=== PATIENT | female | born 1930 | race Caucasian/White ===

== ENCOUNTER 2019-04-03 12:10 | Emergency (ER) | payer MEDICAID, MEDICARE ==
[2019-04-03] MEDS ORDERED: traMADol HCl 50 MG TAB ONE (12:54)
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
--- NOTE | 2019-04-03 14:24 | RAD ---
SINGLE VIEW OF THE CHEST: Comparison: 11-27-18 History: Chest pain FINDINGS: Single view of the chest shows a normal sized cardiomediastinal silhouette. There is no evidence of c onsolidation, mass, or pleural effusion. The bones are unremarkable. IMPRESSION: No evidence of acute cardiopulmonary disease. POS: TPC
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
== END 2019-04-03 14:55 | disposition home or self-care (01) ==
LOC: ERS 12:10
DX: S16.1XXA Strain of muscle, fascia and tendon at neck level, initial encounter (principal); M25.561 Pain in right knee; I25.10 Atherosclerotic heart disease of native coronary artery without angina pectoris; I11.0 Hypertensive heart disease with heart failure; I50.9 Heart failure, unspecified; E03.9 Hypothyroidism, unspecified; K21.9 Gastro-esophageal reflux disease without esophagitis; E78.5 Hyperlipidemia, unspecified; F41.9 Anxiety disorder, unspecified; F32.9 Major depressive disorder, single episode, unspecified; Z87.891 Personal history of nicotine dependence; Z79.899 Other long term (current) drug therapy; Z79.01 Long term (current) use of anticoagulants; V49.59XA Passenger injured in collision with other motor vehicles in traffic accident, initial encounter
CPT/HCPCS: 70450; 71045; 72125

== ENCOUNTER 2020-05-11 08:24 | Observation (INO) | payer MEDICARE, MEDICAID, OTHER ==
--- NOTE | 2020-05-11 08:58 | RAD ---
PORTABLE CHEST: Date: 05/11/2020 HISTORY: Chest pain. COMPARISON: 05/06/2020. FINDINGS: The lungs are clear of infiltrate. Heart and mediastinum appear normal. Vasculature normal. IMPRESSION: No acute process. POS: AGW
[2020-05-11 09:17] LABS: Hemoglobin 10.7 g/dL (12.0-16.0); Mean Corpuscular HGB CONC 31.4 g/dL (32.0-36.0); Mean Corpuscular Hemoglobin 29.5 pg (27.0-31.0); Mean Corpuscular Volume 93.8 fL (78.0-98.0); Mean Platelet Volume 7.2 fL (7.4-10.4); Platelet Count 276 thou/uL (130-400); RBC Distribution Width 13.9 % (11.5-14.5); Red Blood Cell (RBC) Count 3.64 mill/uL (4.20-5.40)
[2020-05-11] MEDS ORDERED: Aspirin Chewable 81 MG TAB ONE (09:20)
[2020-05-11 09:44] LABS: Eosinophils 2 % (0-10); Hypochromia SLIGHT = 6-15 cells (100X) (0-5/hpf); Lymphocytes 12 % (21-51); MDiff Complete? YES; Monocytes 5 % (0-10); Neutrophil 81 % (42-75); Platelet Morphology Comment Appears Adequate; Polychromasia SLIGHT = 2-3 cells (100X) (0-2/hpf)
[2020-05-11 09:45] LABS: ALT (SGPT) Less than 7 U/L (8-55); AST (SGOT) 18 U/L (5-34); Albumin 3.4 g/dL (3.4-4.8); Alkaline Phosphatase 132 U/L (40-110); Anion Gap 13 mmol/L (10-20); BUN (Urea Nitrogen) 7 mg/dL (9.8-20.1); Bilirubin, Total 0.6 mg/dL (0.2-1.2); Calc. Creatinine Clearance 0 mL/min (70-130); Calcium 8.8 mg/dL (7.8-10.44); Carbon Dioxide 22 mmol/L (23-31); Chloride 100 mmol/L (98-107); Estimated GFR-MDRD 62; Globulin 2.9 g/dL (2.4-3.5); Glucose 106 mg/dL (83-110); Lipase 15 U/L (8-78); Potassium 4.7 mmol/L (3.5-5.1); Protein, Total 6.3 g/dL (6.0-8.3); Sodium 130 mmol/L (136-145)
[2020-05-11 10:32] LABS: Bilirubin Negative (Negative); Blood, Urine Negative (Negative); Clarity Clear (Clear); Glucose, Urine (Dipstick) Normal (Negative); Ketone, Urine Negative (Negative); Leukocyte Negative Leu/uL (Negative); Nitrite Negative (Negative); Protein, Urine (Dipstick) Negative (Neg-Trace); Specific Gravity, Urine 1.008 (1.002-1.036); Urobilinogen Normal mg/dL (Less than 2)
[2020-05-11 12:36] LABS: Troponin I 0.019 ng/mL (< 0.028)
[2020-05-11 13:15] LABS: SARS-CoV-2 NAA Rapid Test Not Detected (NotDetected)
--- NOTE | 2020-05-11 14:34 | CT ---
CTA Angio Chest W WO Con 05/11/2020 2:00 PM Indication: Chest pain and; lethargy and bilateral lower extremity swelling Technique: Multiple CTA images were obtained of the thorax with IV contrast. 3-D rendering: MIP mirza nstructed images were created and reviewed. Comparison: No relevant prior studies available. Findings: Pulmonary arteries: No central or segmental pulmonary embolus is evident. Heart and Aorta: There are vascular calcifications involving the thoracic aorta and origins of the g reat vessels of the neck. Mediastinum:There are calcified lymph nodes seen within the mediastinum and right hilar region. Lungs:There are areas of subsegmental volume loss involving both lower lobes. There is some mild isela pheral bronchiectasis seen within the posterior aspects of both lower lobes. There are small bilateral pleural effusions, right greater than left. Pleural space: Small bilateral pleural effusions, right greater than left Upper Abdomen: No acute abnormality Osseous Structures: There are minimally displaced anterolateral right sixth through eighth rib fract ures. There is scattered degenerative and osteoarthritic change present. Soft tissues:No abnormality. Other findings:None. Impression: 1. No central or segmental pulmonary embolus. 2. Small bilateral pleural effusions with suspected bibasilar subsegmental volume loss. There is some areas of mild bronchiectasis seen within both lower lobes. The airspace disease with bronchiectasis and small pleural effusions can be seen with recurrent aspiration . Recommend correlat ion patient's clinical history and consideration for speech therapy consultation. 3. Minimally displaced anterolateral right sixth through eighth rib fractures.
[2020-05-11 15:35] LABS: Troponin I 0.023 ng/mL (< 0.028)
[2020-05-11] MEDS ORDERED: Ondansetron PF 4 MG/2 ML Vial IVP PRN ×2 (15:38→16:37)
[2020-05-11] MEDS ORDERED: Bisacodyl 5 MG TAB PO PRN ×2 (15:38→16:37)
[2020-05-11] MEDS ORDERED: Acetaminophen 325 MG TAB PO PRN ×2 (15:38→16:37)
[2020-05-11] MEDS ORDERED: traMADol HCl 50 MG TAB PO PRN ×2 (15:41→16:37)
[2020-05-11] MEDS ORDERED: Lidocaine 5% Patch TD SCH ×2 (15:45→17:00)
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
[2020-05-11] MEDS ORDERED: Iopamidol 370 76% 100 ML VIAL ONE (16:15)
[2020-05-11 18:26] VITALS: BMI 27.6
[2020-05-12] MEDS ORDERED: Lidocaine Patch Removal 1 EACH TOP SCH (05:00)
[2020-05-12 08:23] LABS: #Eosinphils 0.1 thou/uL (0.0-0.7); #Lymphocytes 1.9 thou/uL (1.20-3.40); #Monocytes 0.8 thou/uL (0.11-0.59); %Basophils 0.5 % (0.0-1.0); %Eosinophils 0.7 % (0.0-10.0); %Lymphocytes 21.3 % (21.0-51.0); %Monocytes 8.6 % (0.0-10.0); %Neutrophils 68.9 % (42.0-75.0); Hemoglobin 10.9 g/dL (12.0-16.0); Mean Corpuscular Hemoglobin 28.3 pg (27.0-31.0); Mean Corpuscular Volume 91.4 fL (78.0-98.0); Mean Platelet Volume 6.9 fL (7.4-10.4); Platelet Count 253 thou/uL (130-400); RBC Distribution Width 14.1 % (11.5-14.5); Red Blood Cell (RBC) Count 3.86 mill/uL (4.20-5.40); White Blood Cell (WBC) Count 8.7 thou/uL (4.8-10.8)
[2020-05-12 08:36] LABS: ALT (SGPT) Less than 7 U/L (8-55); AST (SGOT) 15 U/L (5-34); Albumin 3.4 g/dL (3.4-4.8); Alkaline Phosphatase 128 U/L (40-110); Anion Gap 12 mmol/L (10-20); BUN (Urea Nitrogen) 7 mg/dL (9.8-20.1); Bilirubin, Total 0.8 mg/dL (0.2-1.2); Calc. Creatinine Clearance 54 mL/min (70-130); Calcium 8.8 mg/dL (7.8-10.44); Carbon Dioxide 25 mmol/L (23-31); Chloride 101 mmol/L (98-107); Estimated GFR-MDRD 64; Globulin 2.8 g/dL (2.4-3.5); Glucose 99 mg/dL (83-110); Potassium 4.8 mmol/L (3.5-5.1); Protein, Total 6.2 g/dL (6.0-8.3); Sodium 133 mmol/L (136-145)
[2020-05-12] MEDS ORDERED: Enoxaparin Sodium 40 MG/0.4 ML SYRINGE SC SCH ×2 (09:00)
[2020-05-12 11:47] VITALS: BP 159/67; TEMP 97.1
--- NOTE | 2020-05-13 02:47 | DIS ---
DATE OF ADMISSION: 05/11/2020 DATE OF DISCHARGE: 05/12/2020 PRIMARY CARE PROVIDER: Lam Diaz DO DISCHARGE DIAGNOSES: 1. Chest pain. 2. Chest pain secondary to right-sided rib fractures. 3. Hyponatremia. CONDITION OF PATIENT ON THE DAY OF DISCHARGE: Stable. I assessed Ms. Naylor on the day of discharge. She denies any chest pain. Vital signs are stable. S1 and S2 are heard, regular. Lungs are clear to auscultation bilaterally. HOSPITAL COURSE: Ms. Naylor is a pleasant 89-year-old lady, who was admitted to [facility] on May 11, 2020 for right-sided chest pain secondary to minimally displaced fractures of the right 6th to [address] ribs[address] scan of the chest done at the time of admission did not show any evidence of pulmonary embolism. She had small bilateral pleural effusions with suspected bibasilar subsegmental volume loss and some areas of mild bronchiectasis within both lower lobes. The airspace disease with bronchiectasis and small pleural effusions can be seen with recurrent aspiration, according to radiologist. She is advised to have Speech Therapy evaluation as outpatient. DISCHARGE MEDICATIONS: She has been started on 5% Lidoderm patch. Otherwise, no change was made to her pre-admission home medications. ACTIVITY: No restrictions. DIET: Heart healthy. On the day of discharge, she has sodium 133, potassium 4.8, creatinine 0.84. White count 8700, hemoglobin 10.9, and platelet count 253,000. Job ID: [id number]
--- NOTE | 2020-05-14 12:54 | EKG ---
Test Reason : Blood Pressure : / mmHG Vent. Rate : 074 BPM Atrial Rate : 074 BPM P-R Int : 132 ms QRS Dur : 074 ms QT Int : 364 ms P-R-T Axes : 076 000 071 degrees QTc Int : 404 ms Sinus rhythm with Premature atrial complexes Cannot rule out Inferior infarct , age undetermined Cannot rule out Anterior infarct , age undetermined Abnormal ECG Confirmed by VARGAS SOW ([id number]), editor at large AMBER COON ([id number] on 05/14/2020 12:53:59 PM Referred By: Confirmed By:VARGAS Teague
== END 2020-05-12 13:35 | disposition home or self-care (01) ==
LOC: ERS 08:24 → 2NO 11:27 → ERS 16:03 → INTOOBSV 16:37 → UNDOADMOB 16:37 → 2NO 16:37 → UNDODISOB 05-12 13:35
PROVIDERS: ADMIT Internal Medicine; ATTEND Internal Medicine
DX: R07.9 Chest pain, unspecified (principal); S22.41XA Multiple fractures of ribs, right side, initial encounter for closed fracture; E87.1 Hypo-osmolality and hyponatremia; J90 Pleural effusion, not elsewhere classified; J47.9 Bronchiectasis, uncomplicated; I25.10 Atherosclerotic heart disease of native coronary artery without angina pectoris; I11.0 Hypertensive heart disease with heart failure; I50.9 Heart failure, unspecified; E03.9 Hypothyroidism, unspecified; K21.9 Gastro-esophageal reflux disease without esophagitis; E78.5 Hyperlipidemia, unspecified; F03.90 Unspecified dementia, unspecified severity, without behavioral disturbance, psychotic disturbance, mood disturbance, and anxiety; Z20.828 Contact with and (suspected) exposure to other viral communicable diseases; Z79.02 Long term (current) use of antithrombotics/antiplatelets; Z79.899 Other long term (current) drug therapy; Z90.49 Acquired absence of other specified parts of digestive tract; Z90.710 Acquired absence of both cervix and uterus; W19.XXXA Unspecified fall, initial encounter; Z88.0 Allergy status to penicillin; Z88.1 Allergy status to other antibiotic agents; Z88.2 Allergy status to sulfonamides; Z88.5 Allergy status to narcotic agent; Z88.6 Allergy status to analgesic agent; Z88.8 Allergy status to other drugs, medicaments and biological substances
CPT/HCPCS: 51701; 71045; 71275; 80053 ×2; 81003; 83690; 83880; 84484 ×2; 85025 ×2; 87086; 93005; 94760; 99285; U0002; 36415; G0378; J1650; Q9967